=== PATIENT | male | born 1990 | race Caucasian/White ===

== ENCOUNTER 2017-02-07 12:59 | Emergency (ER) | payer SELFPAY ==
[2017-02-07 13:14] LABS: BASOPHILS % 0.5 (0.0-1.5); EOSINOPHILS % 0.9 % (0.0-6.8); LYMPHOCYTES # 1.5 # k/uL (0.6-4.0); MEAN CORPUSCULAR HEMOGLOBIN 31.5 pg (28.0-34.0); MONOCYTES # 0.3 # k/uL (0.0-0.9); MONOCYTES % 5.8 % (0.0-11.0); NEUTROPHILS # 3.4 # k/uL (1.4-7.7)
[2017-02-07] MEDS ORDERED: 0.9 % SODIUM CHLORIDE 1,000 ML IV ONE ×2 (13:16)
[2017-02-07 13:36] LABS: eGFR (African) > 60; eGFR (Non-African) > 60
--- NOTE | 2017-02-07 13:49 | ED Physician Documentation ---
Chest Pain - HISTORIAN Historian: patient - HPI Stated Complaint: Palpitations Chief Complaint: Chest Pain Onset: minutes Last known Well Date: 02/07/17 Last Known Well Time: 10:00 Chest Pain Radiation: no radiation Further Comments: yes (26 year old male patient presents with complaints of chest pain. Patient reports using cocaine 1.5 hours ago. States he was in the hospital 1 week ago with CP due to cocaine use. Denies SOB, diaphoresis or nausea.) - ROS CONST: none MS/LYMPH: none GI/: none EYES/ENT: none SKIN/ENDO: none NEURO/PSYCH: none - PAST HX GA risk factors: no pertinent history DVT/PE Risk Factors: none TAD/AAA risk factors: none Neuro deficit: none GI disease: none Allergies/Adverse Reactions: Allergies Allergy/AdvReac Type Severity Reaction Status Date / Time No Known Allergies Allergy Unverified 02/07/17 13:13 Home Medications: Ambulatory Orders Medication Instructions Recorded NK [NK] 02/07/17 - SOCIAL HX Smoking History: cigarettes Alcohol Use: none Drug Use: cocaine - FAMILY HX Family HX: denies: none - VITAL SIGNS Vital Signs: Vital Signs Temp Pulse Resp BP Pulse Ox 98.9 F 74 18 140/88 99 02/07/17 12:59 02/07/17 13:36 02/07/17 12:59 02/07/17 12:59 02/07/17 12:59 - REVIEWED ASSESSMENTS Nursing Assessment Reviewed: Yes Vitals Reviewed: Yes Progress - Progress Progress: Counseled patient on use of cocaine and cardiac GA. Patient verbalized understanding. Patient denies addiction. Offered to set up rehab. Patient states is going home to [place] and would follow up there. NA meeting schedule provided for [facility] phone number provided. - EKG/XRAY/CT EKG: NSR (no acute change) ED Results Lab/Radiology - Lab Results Lab Results: Lab Results 02/07/17 02/07/17 02/07/17 13:10 13:10 13:10 WBC 5.40 K/ul K/ul (4.00-12.00) RBC 4.38 M/ul M/ul (3.90-5.20) Hgb 13.8 g/dL g/dL (12.0-18.0) Hct 40.7 % % (37.0-53.0) MCV 92.8 fl fl (80.0-100.0) MCH 31.5 pg pg (28.0-34.0) MCHC 33.9 g/dL g/dL (30.0-36.0) RDW 12.8 % % (11.3-14.3) Plt Count 212 K/mm3 K/mm3 (130-400) Neut % (Auto) 63.1 % % (39.0-79.0) Lymph % (Auto) 27.5 % % (16.0-50.0) [place] % (Auto) 5.8 % % (0.0-11.0) Eos % (Auto) 0.9 % % (0.0-6.8) Baso % (Auto) 0.5 (0.0-1.5) Neut # 3.4 # k/uL # k/uL (1.4-7.7) Lymph # 1.5 # k/uL # k/uL (0.6-4.0) [place] # 0.3 # k/uL # k/uL (0.0-0.9) Eos # 0.0 # k/uL # k/uL (0.0-0.6) Baso # 0.0 # k/uL # k/uL (0.0-0.5) Reactive Lymphs % 2.3 % % (0.0-5.0) Reactive Lymphs # 0.1 # k/uL # k/uL (0.0-0.8) Sodium 142 mmol/L mmol/L (136-145) Potassium 3.1 mmol/L L mmol/L (3.5-5.0) Chloride 107 mmol/L mmol/L (98-110) Carbon Dioxide 34 mmol/L H mmol/L (20-32) BUN 11 mg/dL mg/dL (10-26) Creatinine 1.0 mg/dL mg/dL (0.4-1.5) Estimated Creat Clear 100 Est GFR ( Amer) > 60 (60 - ) Est GFR (Non-Af Amer) > 60 (60 - ) Glucose 88 mg/dL mg/dL (70-99) Calcium 9.5 mg/dL mg/dL (8.5-10.5) Total Bilirubin 0.3 mg/dL mg/dL (0.2-1.2) AST 18 U/L U/L (0-41) ALT 16 U/L U/L (0-45) Alkaline Phosphatase 62 U/L U/L (46-116) Creatine Kinase 73 U/L U/L (0-225) CK-MB (CK-2) 0.5 ng/mL ng/mL (0.0-5.6) Troponin I < 0.03 ng/mL L ng/mL (0.03-0.06) Total Protein 7.2 g/dL g/dL (6.0-8.5) Albumin 4.7 g/dL g/dL (3.0-5.5) - Orders Orders: ED Orders Category Date Time Status Continuous EKG monitoring Q30M Care 02/07/17 13:[address] Saline Lock/IV NOW Care 02/07/17 13:06 Completed CBC/PLATELET/DIFF Stat Lab 02/07/17 13:10 Completed CKMB Stat Lab 02/07/17 13:10 Completed CMP Stat Lab 02/07/17 13:10 Completed CREATINE KINASE Stat Lab 02/07/17 13:10 Completed TROPONIN I (cTnI) Stat Lab 02/07/17 13:10 Completed UA W/MICRO IF INDICATED Stat Lab 02/07/17 13:06 Ordered Urine drug screen [DRUG SCREEN URINE MEDICAL ONLY] Stat Lab 02/07/17 Ordered 0.9 % Sodium Chloride [Normal Saline] 1,000 ml Med 02/07/17 13:16 Discontinued IV .STK-MED 0.9 % Sodium Chloride [Normal Saline] 1,000 ml Med 02/07/17 13:16 Discontinued IV NOW EKG WITH COMPARISON Stat Ther 02/07/17 13:06 Ordered Chest Pain Physical Exam - EXAM General Appearance: no acute distress, alert Respiratory: no resp. distress, chest non-tender, nml breath sounds CVS: reg. rate & rhythm, no murmur, no gallop, no friction rub, pulses full, pulses equal Abdomen: soft, no organomegaly, normal bowel sounds, no abdominal bruit, no distension Skin: normal color, warm/dry, NR, INT, DR Extremities: non-tender, normal range of motion, no evidence of injury, no edema , J, [employer] Neuro: oriented X3, CN's nml as tested, motor nml, sensation nml, mood/affect nml Discharge Clincal Impression: chest pain related to cocaine use, Cocaine abuse Referrals: Primary Doctor,No [Primary Care Provider] - 2 Days Home Medications: Ambulatory Orders NK [NK] 02/07/17 Condition: Stable Disposition: 01 HOME, SELF-CARE Decision to Admit: NO Decision Time: 14:15
[2017-02-07 14:15] LABS: APPEARANCE,URINE Clear (CLEAR); COLOR,URINE Yellow (YELLOW); OCCULT BLOOD,URINE Negative (NEGATIVE); PH URINE 8.5 (5.0 - 8.0); UROBILINOGEN URINE 0.2 Eu (0.2-1.0)
[2017-02-07 14:19] LABS: AMPHETAMINE NEGATIVE ng/mL (<1000); BARBITURATES NEGATIVE ng/mL (<300); CANNABINOIDS NON NEGATIVE ng/mL (<50); COCAINE NON NEGATIVE ng/mL (<150); METHAMPHETAMINE NEGATIVE ng/mL (<1000); METHYLENEDIOXYMETHAMPHETAMINE NEGATIVE ng/mL (<500)
[2017-02-07 14:35] VITALS: BP 124/61
[2017-02-09 11:28] LABS: CANNABINOIDS CONFIRMATION >150 ng/mL (<15)
== END 2017-02-07 14:30 | disposition home or self-care (01) ==
LOC: ED 12:59
DX: F14.288 Cocaine dependence with other cocaine-induced disorder (principal); R07.9 Chest pain, unspecified
CPT/HCPCS: 80053; 80377; 81002; 82550; 82553; 84484; 85025; 99283; G0481; J7030; S1016